=== PATIENT | female | born 1945 | race Caucasian/White ===

== ENCOUNTER 2020-04-04 21:27 | Day surgery (SDCO) | payer MEDICARE ==
[2020-04-04 22:55] LABS: BASOPHIL 0.9 % (0-2); EOSINOPHIL 1.1 % (0-7); HCT 36.6 % (37.0-47.0); HGB 10.5 g/dl (12.5-16.0); MCH 25.9 pg (25.0-31.0); MCHC 28.7 g/dL (32.0-36.0); MCV 90.4 fL (78.0-100.0); MONOCYTE 9.2 % (0-12); MPV 9.7 fL (6.0-9.5); NEUTROPHIL 78.8 % (41-80); NRBC 0.1; PLT 351 K/uL (150-400); RBC 4.05 M/uL (4.20-5.40); RDW 20.2 % (11.5-14.0); WBC 13.8 K/uL (4.0-10.5)
[2020-04-04 23:00] LABS: ALBUMIN 2.8 g/dL (3.4-5.0); BILIRUBIN - TOTAL 0.3 mg/dL (0.2-1.0); BUN/CREAT RATIO (CALC) 27.4 RATIO; CREATININE 1.06 mg/dL (0.51-0.95); GLOBULIN (CALCULATION) 4.5 g/dL; POTASSIUM 4.7 mmol/L (3.5-5.1); TOTAL PROTEIN 7.3 g/dL (6.4-8.2)
[2020-04-04 23:04] LABS: LACTIC ACID 1.8 mmol/L (0.4-1.9)
[2020-04-05 00:02] LABS: FLU B NEGATIVE B (NEGATIVE B)
[2020-04-05] MEDS ORDERED: ATIVAN0.5 MG PO (05:27)
[2020-04-05] MEDS ORDERED: ZESTORETIC 10-1 EACH PO (05:27)
[2020-04-05] MEDS ORDERED: LIDOCAINE 4%50 ML TOP (05:28)
[2020-04-05] MEDS ORDERED: TRAMADOL HCL50 MG PO (05:29)
[2020-04-05] MEDS ORDERED: PROBIOTIC1 EAC1 PO (05:29)
[2020-04-05] MEDS ORDERED: SYNTHROID125 MCG PO (05:30)
[2020-04-05] MEDS ORDERED: PROTONIX 40MG T40 MG PO (05:30)
[2020-04-05] MEDS ORDERED: POLYETHYLENE GLY1 GM PO (05:31)
[2020-04-05] MEDS ORDERED: PERCOCET 7.5/321 TAB PO (05:34)
[2020-04-05] MEDS ORDERED: C-10001000 MG PO (05:35)
[2020-04-05 06:05] LABS: BILIRUBIN NEGATIVE (NEGATIVE); BLOOD NEGATIVE Ery/uL (NEGATIVE); CLARITY CLEAR (CLEAR); COLOR YELLOW (YELLOW); GLUCOSE (U) NORMAL (NORMAL); LEUKOCYTES NEGATIVE Leu/uL (NEGATIVE); NITRITE NEGATIVE (NEGATIVE); PROTEIN NEGATIVE (NEGATIVE); UROBILINOGEN 0.2 mg/dL (0.2-1.0); pH 5.5 (5.0-9.0)
[2020-04-05 07:21] LABS: EOSINOPHIL 2.1 % (0-7); HCT 32.3 % (37.0-47.0); HGB 9.4 g/dl (12.5-16.0); LYMPHOCYTE 14.4 % (15-48); MCH 26.1 pg (25.0-31.0); MCHC 29.1 g/dL (32.0-36.0); MCV 89.7 fL (78.0-100.0); MONOCYTE 10.1 % (0-12); MPV 9.2 fL (6.0-9.5); NEUTROPHIL 70.9 % (41-80); NRBC 0; PLT 261 K/uL (150-400); RDW 20.7 % (11.5-14.0); WBC 9.4 K/uL (4.0-10.5)
[2020-04-05 07:48] LABS: BUN/CREAT RATIO (CALC) 38.5 RATIO; CREATININE 0.65 mg/dL (0.51-0.95); POTASSIUM 4.1 mmol/L (3.5-5.1)
--- NOTE | 2020-04-05 10:54 | NUR ---
PT LIVES AT HOME WITH SPOUSE. HAS A WALKER AT HOME AND HAS [facility]. SPOKE WITH KARINA ([facility]) AND SHE WANTS TO BE CALLED WHEN PATIENT IS DC'D HOME, REGARDLESS IF IT'S TODAY OR TOMORROW (04/06/20).
--- NOTE | 2020-04-05 10:57 | NUR ---
KARINA CALDERÓN'S (Brennan CHAVEZ) PHONE #
[2020-04-05] MEDS ORDERED: CITRACAL + D M1 EACH PO (16:34)
[2020-04-05] MEDS ORDERED: MAGNESIUM PO (16:36)
--- NOTE | 2020-04-06 15:15 | NUR ---
1300--CHERY CATHETER REMOVED PER ORDER. PT TO BE DISCHARGED TODAY
== END 2020-04-06 16:40 | disposition home or self-care (01) ==
LOC: FER 21:27 → FMS 04-05 04:14
PROVIDERS: Emergency Medicine; Nurse Practitioner; ADMIT Internal Medicine
DX: I95.1 Orthostatic hypotension (principal); E87.1 Hypo-osmolality and hyponatremia; S71.102A Unspecified open wound, left thigh, initial encounter; E86.0 Dehydration; N17.9 Acute kidney failure, unspecified; M19.90 Unspecified osteoarthritis, unspecified site; I10 Essential (primary) hypertension; E03.9 Hypothyroidism, unspecified; K90.9 Intestinal malabsorption, unspecified; M81.0 Age-related osteoporosis without current pathological fracture; D50.9 Iron deficiency anemia, unspecified; E66.01 Morbid (severe) obesity due to excess calories; Z68.42 Body mass index [BMI] 45.0-49.9, adult; Z79.899 Other long term (current) drug therapy; Z88.5 Allergy status to narcotic agent; Z96.643 Presence of artificial hip joint, bilateral; Z98.84 Bariatric surgery status; Z20.828 Contact with and (suspected) exposure to other viral communicable diseases
CPT/HCPCS: 36415; 71045; 80048; 80053; 81003; 82150; 83036; 83605; 84145; 84443; 84484; 85025; 87040; 87088; 87804; 87899; 93005; G0378; J1650; J2543; J7030; J7040; J7120; U0002